=== PATIENT | male | born 1980 | race African-American/Black ===

== ENCOUNTER 2019-05-08 15:57 | Emergency (ER) | payer OTHER ==
--- NOTE | 2019-05-08 16:47 | RAD ---
Radiograph right hand 3 views: HISTORY: 38-year-old male with pain and swelling FINDINGS: Anterior angulation of head of fifth metacarpal relative to the diaphysis. Faint oblique fracture gera ency visible. Early callus formation. No dislocation. IMPRESSION: Healing, subacute, angulated boxer's fracture of neck of fifth metacarpal.
[2019-05-08] MEDS ORDERED: Ibuprofen 600 MG TAB ONE (17:02)
[2019-05-08] MEDS ORDERED: Acetaminophen 325 MG TAB ONE (17:02)
== END 2019-05-08 17:06 ==
LOC: MADERS 15:57
DX: S62.336A Displaced fracture of neck of fifth metacarpal bone, right hand, initial encounter for closed fracture (principal); I10 Essential (primary) hypertension; E78.5 Hyperlipidemia, unspecified; F31.9 Bipolar disorder, unspecified; X58.XXXA Exposure to other specified factors, initial encounter
CPT/HCPCS: 29125